=== PATIENT | male | born 1945 | race Caucasian/White ===

== ENCOUNTER 2016-06-26 15:15 | Inpatient (IN) | payer MEDICARE ==
[~2016-06-26 15:15] MED LIST: ACTOS45 M1 PO; ADULT LOW DOSE81 M1 PO; BRIMONIDINE TART5 M2 OP; COUMADIN5 M2 PO; COUMADIN7.5 M1 PO; GLIPIZIDE XL2.5 M1 PO; JANUVIA100 M1 PO; LEVAQUIN500 M1 PO; LEVAQUIN750 M1 PO; LISINOPRIL10 M1 PO; METFORMIN HCL500 M2 PO; MILK OF MAGNESIA PO; MIRALAX17 G2 PO; NIACIN500 M2 PO; ONGLYZA5 M1 PO; PREDNISONE10 M1 PO; PREDNISONE20 M1 PO; PROAIR HFA8.5 GM INH; SIMVASTATIN40 M1 PO; SPIRIVA18 MC1 IH; SUDAFED 12-HOU120 MG PO; SYMBICORT 160-1 PUFF INH; SYNTHROID50 MC1 PO; TYLENOL325 M2 PO; XALATAN2.5 M1 OP; ZITHROMAX250 M1 PO
[2016-06-26] MEDS ORDERED: VICTOZA 2-0.6 MG/0.1 SC (16:11)
[2016-06-26] MEDS ORDERED: LASIX40 M1 PO (16:12)
[2016-06-26] MEDS ORDERED: POTASSIUM CHLO10 ME2 PO (16:12)
[2016-06-26] MEDS ORDERED: COREG3.125 M1 PO (16:12)
[2016-06-26 19:47] LABS: INR 3.7 INR (0.9-1.1); PROTHROMBIN TIME 44.5 SECONDS (9.0-13.6)
[2016-06-26 20:03] LABS: ALB/GLOB RATIO 0.9 (0.8-2.0); ALBUMIN 3.4 g/dl (3.5-5.0); ALKALINE PHOSPHATASE 76 U/L (33-138); ALT/SGPT 19 U/L (12-78); ANION GAP 15 mmol/L (0-20); AST/SGOT 27 U/L (10-40); BILIRUBIN,TOTAL 0.5 mg/dl (0.0-1.5); BLOOD UREA NITROGEN 22 mg/dl (6-24); CALCIUM 8.6 mg/dl (8.5-10.5); CARBON DIOXIDE-VENOUS 29 mmol/L (22-32); CHLORIDE 99 mmol/l (96-110); CREATININE 0.83 mg/dl (0.60-1.30); GLUCOSE 182 mg/dL (70-110); POTASSIUM 4.2 mmol/L (3.7-5.1); SODIUM 139 mmol/L (135-145); eGFR VALUE FOR BLACK >90 mL/Min
[2016-06-27 06:01] LABS: HCT-HEMATOCRIT 30.9 % (36.0-53.5); HGB-HEMOGLOBIN 10.1 gm/dl (13.5-17.0); IMMATURE GRANULOCYTES ABSOLUTE 0.01 tho/cmm (0-0.03); IMMATURE GRANULOCYTES PERCENT 0.2 % (0-0.3); LYMPH % 3.3 % (20-45); LYMPH ABSOLUTE COUNT 0.1 tho/cmm (0.8-4.5); MCH (MEAN CORPUSCULAR HGB) 32.5 pg (28.0-32.0); MCHC MEAN CORPUSCULAR HGB CONC 32.7 % (32.0-36.0); MCV (MEAN CELL VOLUME) 99.4 fl (82.0-96.0); MEAN PLATELET VOLUME 9.4 cmc (9.4-12.4); MONO % 10.3 % (0-12); MONOCYTE ABSOLUTE COUNT 0.4 tho/cmm (0.0-1.2); NEUTROPHIL ABSOLUTE COUNT 3.6 tho/cmm (1.6-8.0); NEUTROPHIL-AUTOMATED 3.6 tho/cmm (1.6-8.0); NEUTROPHILS % 86.2 % (40-80); PLATELET COUNT 103 tho/cmm (150-450); RED BLOOD COUNT 3.11 mil/cmm (4.40-5.70); RED CELL DISTRIBUTION WIDTH 15.7 % (12.4-16.4); WHITE BLOOD COUNT 4.2 tho/cmm (4.0-10.0)
[2016-06-27 06:17] LABS: ALB/GLOB RATIO 0.8 (0.8-2.0); ALBUMIN 3.1 g/dl (3.5-5.0); ALKALINE PHOSPHATASE 70 U/L (33-138); ALT/SGPT 20 U/L (12-78); ANION GAP 14 mmol/L (0-20); AST/SGOT 19 U/L (10-40); BILIRUBIN,TOTAL 0.4 mg/dl (0.0-1.5); BLOOD UREA NITROGEN 27 mg/dl (6-24); CALCIUM 8.7 mg/dl (8.5-10.5); CARBON DIOXIDE-VENOUS 30 mmol/L (22-32); CHLORIDE 100 mmol/l (96-110); CREATININE 0.69 mg/dl (0.60-1.30); GLUCOSE 184 mg/dL (70-110); MAGNESIUM 1.7 mg/dl (1.3-2.6); POTASSIUM 4.1 mmol/L (3.7-5.1); SODIUM 140 mmol/L (135-145); eGFR VALUE FOR BLACK >90 mL/Min
[2016-06-27 06:47] LABS: INR 3.3 INR (0.9-1.1); PROTHROMBIN TIME 40.1 SECONDS (9.0-13.6)
[2016-06-27 16:49] LABS: INR 1.3 INR (0.9-1.1); PROTHROMBIN TIME 15.5 SECONDS (9.0-13.6)
[2016-06-28 05:17] LABS: EOS % 0.9 % (0-7); HCT-HEMATOCRIT 35.5 % (36.0-53.5); HGB-HEMOGLOBIN 11.5 gm/dl (13.5-17.0); IMMATURE GRANULOCYTES ABSOLUTE 0.01 tho/cmm (0-0.03); IMMATURE GRANULOCYTES PERCENT 0.2 % (0-0.3); LYMPH % 9.2 % (20-45); LYMPH ABSOLUTE COUNT 0.4 tho/cmm (0.8-4.5); MCH (MEAN CORPUSCULAR HGB) 32.5 pg (28.0-32.0); MCHC MEAN CORPUSCULAR HGB CONC 32.4 % (32.0-36.0); MCV (MEAN CELL VOLUME) 100.3 fl (82.0-96.0); MEAN PLATELET VOLUME 9.3 cmc (9.4-12.4); MONO % 13.7 % (0-12); MONOCYTE ABSOLUTE COUNT 0.6 tho/cmm (0.0-1.2); NEUTROPHIL ABSOLUTE COUNT 3.4 tho/cmm (1.6-8.0); NEUTROPHIL-AUTOMATED 3.4 tho/cmm (1.6-8.0); PLATELET COUNT 121 tho/cmm (150-450); RED BLOOD COUNT 3.54 mil/cmm (4.40-5.70); RED CELL DISTRIBUTION WIDTH 15.6 % (12.4-16.4); WHITE BLOOD COUNT 4.4 tho/cmm (4.0-10.0)
[2016-06-28 05:22] LABS: ANION GAP 14 mmol/L (0-20); BLOOD UREA NITROGEN 27 mg/dl (6-24); CALCIUM 9.1 mg/dl (8.5-10.5); CARBON DIOXIDE-VENOUS 32 mmol/L (22-32); CHLORIDE 99 mmol/l (96-110); CREATININE 0.79 mg/dl (0.60-1.30); GLUCOSE 151 mg/dL (70-110); MAGNESIUM 1.8 mg/dl (1.3-2.6); POTASSIUM 4.7 mmol/L (3.7-5.1); SODIUM 140 mmol/L (135-145); eGFR VALUE FOR BLACK >90 mL/Min
[2016-06-28 05:32] LABS: PROTHROMBIN TIME 11.4 SECONDS (9.0-13.6)
[2016-06-29 07:24] LABS: INR 0.9 INR (0.9-1.1); PROTHROMBIN TIME 10.5 SECONDS (9.0-13.6)
[2016-06-29 07:34] LABS: ANION GAP 9 mmol/L (0-20); BLOOD UREA NITROGEN 24 mg/dl (6-24); CALCIUM 8.7 mg/dl (8.5-10.5); CARBON DIOXIDE-VENOUS 33 mmol/L (22-32); CHLORIDE 98 mmol/l (96-110); CREATININE 0.72 mg/dl (0.60-1.30); GLUCOSE 179 mg/dL (70-110); MAGNESIUM 1.7 mg/dl (1.3-2.6); SODIUM 136 mmol/L (135-145); eGFR VALUE FOR BLACK >90 mL/Min
[2016-06-29 07:37] LABS: POTASSIUM 3.8 mmol/L (3.7-5.1)
[2016-06-30 05:54] LABS: PROTHROMBIN TIME 11.1 SECONDS (9.0-13.6)
[2016-07-01 05:52] LABS: BASO % 0.3 % (0-2); HCT-HEMATOCRIT 34.9 % (36.0-53.5); HGB-HEMOGLOBIN 11.4 gm/dl (13.5-17.0); IMMATURE GRANULOCYTES ABSOLUTE 0.02 tho/cmm (0-0.03); IMMATURE GRANULOCYTES PERCENT 0.5 % (0-0.3); LYMPH % 5.6 % (20-45); LYMPH ABSOLUTE COUNT 0.2 tho/cmm (0.8-4.5); MCH (MEAN CORPUSCULAR HGB) 32.3 pg (28.0-32.0); MCHC MEAN CORPUSCULAR HGB CONC 32.7 % (32.0-36.0); MCV (MEAN CELL VOLUME) 98.9 fl (82.0-96.0); MEAN PLATELET VOLUME 9.7 cmc (9.4-12.4); MONO % 4.1 % (0-12); MONOCYTE ABSOLUTE COUNT 0.2 tho/cmm (0.0-1.2); NEUTROPHIL ABSOLUTE COUNT 3.5 tho/cmm (1.6-8.0); NEUTROPHIL-AUTOMATED 3.5 tho/cmm (1.6-8.0); NEUTROPHILS % 89.5 % (40-80); PLATELET COUNT 129 tho/cmm (150-450); RED BLOOD COUNT 3.53 mil/cmm (4.40-5.70); RED CELL DISTRIBUTION WIDTH 15.3 % (12.4-16.4); WHITE BLOOD COUNT 3.9 tho/cmm (4.0-10.0)
[2016-07-01 05:56] LABS: PROTHROMBIN TIME 11.5 SECONDS (9.0-13.6)
[2016-07-01 06:10] LABS: ANION GAP 13 mmol/L (0-20); BLOOD UREA NITROGEN 27 mg/dl (6-24); CARBON DIOXIDE-VENOUS 31 mmol/L (22-32); CHLORIDE 96 mmol/l (96-110); CREATININE 0.85 mg/dl (0.60-1.30); GLUCOSE 227 mg/dL (70-110); MAGNESIUM 1.7 mg/dl (1.3-2.6); SODIUM 136 mmol/L (135-145); eGFR VALUE FOR BLACK >90 mL/Min
[2016-07-02 06:36] LABS: INR 1.1 INR (0.9-1.1); PROTHROMBIN TIME 12.5 SECONDS (9.0-13.6)
[2016-07-03 03:51] LABS: INR 1.6 INR (0.9-1.1)
[2016-07-03 04:10] LABS: PROTHROMBIN TIME 19.1 SECONDS (9.0-13.6)
[2016-07-03] MEDS ORDERED: COUMADIN10 M1 PO (14:21)
[2016-07-03] MEDS ORDERED: LOVENOX120 MG/0.1 SC (14:22)
[2016-07-03] MEDS ORDERED: COLACE100 M1 PO (14:28)
[2016-07-03] MEDS ORDERED: MILK OF MAGNESIA PO (14:30)
[2016-07-03] MEDS ORDERED: MIRALAX17 G2 PO (14:32)
[2016-07-04 06:14] LABS: BASO % 0.3 % (0-2); EOS % 0.9 % (0-7); HCT-HEMATOCRIT 34.7 % (36.0-53.5); HGB-HEMOGLOBIN 11.7 gm/dl (13.5-17.0); IMMATURE GRANULOCYTES ABSOLUTE 0.05 tho/cmm (0-0.03); IMMATURE GRANULOCYTES PERCENT 1.5 % (0-0.3); LYMPH % 13.9 % (20-45); LYMPH ABSOLUTE COUNT 0.5 tho/cmm (0.8-4.5); MCH (MEAN CORPUSCULAR HGB) 32.9 pg (28.0-32.0); MCHC MEAN CORPUSCULAR HGB CONC 33.7 % (32.0-36.0); MCV (MEAN CELL VOLUME) 97.5 fl (82.0-96.0); MONO % 14.2 % (0-12); MONOCYTE ABSOLUTE COUNT 0.5 tho/cmm (0.0-1.2); NEUTROPHIL ABSOLUTE COUNT 2.3 tho/cmm (1.6-8.0); NEUTROPHIL-AUTOMATED 2.3 tho/cmm (1.6-8.0); NEUTROPHILS % 69.2 % (40-80); PLATELET COUNT 137 tho/cmm (150-450); RED BLOOD COUNT 3.56 mil/cmm (4.40-5.70); RED CELL DISTRIBUTION WIDTH 14.9 % (12.4-16.4); WHITE BLOOD COUNT 3.3 tho/cmm (4.0-10.0)
[2016-07-04 06:29] LABS: INR 2.2 INR (0.9-1.1)
[2016-07-04 06:32] LABS: PARTIAL THROMBOPLASTIN TIME 38 SECONDS (22-38)
[2016-07-04 06:33] LABS: PROTHROMBIN TIME 26.2 SECONDS (9.0-13.6)
[2016-07-04 07:01] LABS: ALB/GLOB RATIO 0.8 (0.8-2.0); ALBUMIN 3.2 g/dl (3.5-5.0); ALKALINE PHOSPHATASE 75 U/L (33-138); ALT/SGPT 20 U/L (12-78); ANION GAP 13 mmol/L (0-20); AST/SGOT 20 U/L (10-40); BILIRUBIN,TOTAL 0.3 mg/dl (0.0-1.5); BLOOD UREA NITROGEN 23 mg/dl (6-24); CALCIUM 8.9 mg/dl (8.5-10.5); CARBON DIOXIDE-VENOUS 33 mmol/L (22-32); CHLORIDE 94 mmol/l (96-110); CREATININE 0.85 mg/dl (0.60-1.30); GLUCOSE 171 mg/dL (70-110); POTASSIUM 3.5 mmol/L (3.7-5.1); SODIUM 136 mmol/L (135-145); eGFR VALUE FOR BLACK >90 mL/Min
[2016-07-05 05:51] LABS: INR 2.8 INR (0.9-1.1)
[2016-07-05 06:11] LABS: ANION GAP 7 mmol/L (0-20); BLOOD UREA NITROGEN 22 mg/dl (6-24); CARBON DIOXIDE-VENOUS 37 mmol/L (22-32); CHLORIDE 96 mmol/l (96-110); CREATININE 0.76 mg/dl (0.60-1.30); GLUCOSE 133 mg/dL (70-110); POTASSIUM 3.2 mmol/L (3.7-5.1); SODIUM 137 mmol/L (135-145); eGFR VALUE FOR BLACK >90 mL/Min
[2016-07-05] MEDS ORDERED: COUMADIN7.5 M1 PO (11:32)
[2016-07-05] MEDS ORDERED: ZOCOR40 M1 PO (11:34)
== END 2016-07-05 16:30 | DRG 922 ==
LOC: 5WF 15:15 → ORW 06-28 07:30 → PACU 06-28 08:42 → 5WF 06-28 09:30
PROVIDERS: Internal Medicine Hematology & Oncology; Physician Assistant; Physician Assistant Medical; ADMIT Internal Medicine Hematology & Oncology
PROC: 30253L1 (ICD-10-PCS; 2016-06-26)
PROC: 0DH64UZ Insertion of Feeding Device into Stomach, Percutaneous Endoscopic Approach (ICD-10-PCS; principal; 2016-06-28)
DX: T66.XXXA Radiation sickness, unspecified, initial encounter (principal); D61.810 Antineoplastic chemotherapy induced pancytopenia; E46 Unspecified protein-calorie malnutrition; D69.59 Other secondary thrombocytopenia; K56.7 Ileus, unspecified; J44.9 Chronic obstructive pulmonary disease, unspecified; D64.81 Anemia due to antineoplastic chemotherapy; C76.0 Malignant neoplasm of head, face and neck; R13.10 Dysphagia, unspecified; E86.0 Dehydration; E03.9 Hypothyroidism, unspecified; E11.9 Type 2 diabetes mellitus without complications; E78.5 Hyperlipidemia, unspecified; I10 Essential (primary) hypertension; I25.10 Atherosclerotic heart disease of native coronary artery without angina pectoris; K59.00 Constipation, unspecified; M54.5 Low back pain; Z95.1 Presence of aortocoronary bypass graft; Z86.718 Personal history of other venous thrombosis and embolism; Z79.01 Long term (current) use of anticoagulants; Z68.28 Body mass index [BMI] 28.0-28.9, adult; T45.1X5A Adverse effect of antineoplastic and immunosuppressive drugs, initial encounter
CPT/HCPCS: C1894; J0690; J1650; J1815; J1956; J2250; J2920; J3010; J3430; P9017; Q9967